=== PATIENT | male | born 1945 | race Caucasian/White ===

== ENCOUNTER → 2017-11-06 | Outpatient (CLI) | payer OTHER ==
[~2017-11-06] MED LIST: ASPIR 8181 M1 PO; CITRUCEL CAPLET1 TA1 PO; COREG6.25 MG PO; COUMADIN 10MG T10 M1 PO; COUMADIN 4 MG TA4 M1 PO; COUMADIN 5 MG TA5 M1 PO; COUMADIN PO; COUMADIN7.5 MG PO; COZAAR 50 MG TA50 M2 PO; DIFLUCAN200 MG PO; DOXYCYCLINE 10100 MG PO; ELIQUIS5 MG PO; ENALAPRIL MALEA20 MG PO; FOLIC ACID1 MG PO; GLUCOPHAGE1000 MG PO; GLUCOTROL5 MG PO; GLYBURIDE 5 MG T5 M1 PO; HUMALOG100 UNIT/1 SUBQ; I-CAPS AREDS S1 EACH PO; JARDIANCE10 MG PO; KEFLEX500 MG PO; LASIX 20 MG TAB20 MG PO; LEVAQUIN 250 M250 MG PO; LIPITOR10 MG PO; LOPRESSOR100 M1 PO; LOVASTAT20 PO; LUMIGAN2.5 M1 OPHTHALMIC; METFORMIN HCL500 MG PO; METFORMIN PO; NORVASC5 MG PO; OMEGA-31000 M1 PO; PENTOXIFYLLINE25 GM PO; PENTOXIFYLLINE400 MG PO; PLAVIX 75 MG TA75 M1 PO; SYNTHROID100 MCG PO; TRENTAL PO; TUMS PO; UNICOMPLEX M TA1 TA1 PO; VASOTEC10 MG PO; VITAMIN B-12500 MCG PO; VITAMIN B-6100 MG PO; XALATAN2.5 ML OPHTHALMIC
== END ==
LOC: M.ULTRA 12:25
DX: I74.2 Embolism and thrombosis of arteries of the upper extremities (principal); I65.29 Occlusion and stenosis of unspecified carotid artery; E11.9 Type 2 diabetes mellitus without complications; Z79.4 Long term (current) use of insulin

== ENCOUNTER 2017-11-10 15:37 | Inpatient (IN) | payer OTHER ==
[~2017-11-10] VITALS: Ht 177.8 cm; Wt 98.0 kg
[~2017-11-10 15:37] MED LIST changes: -FOLIC ACID1 MG PO; -JARDIANCE10 MG PO; -METFORMIN HCL500 MG PO; -SYNTHROID100 MCG PO; -UNICOMPLEX M TA1 TA1 PO; -VITAMIN B-12500 MCG PO; -VITAMIN B-6100 MG PO
[2017-11-10 15:41] VITALS: BP 180/89
[2017-11-10 16:14] LABS: ABSOLUTE BASOPHILS 0.1 thou/uL (0.0-0.2); ABSOLUTE EOSINOPHILS 0.4 thou/uL (0.0-0.7); ABSOLUTE LYMPHOCYTES 2.1 thou/uL (0.8-5.3); ABSOLUTE MONOCYTES 0.9 thou/uL (0.0-1.2); ABSOLUTE NEUTROPHILS 4.7 thou/uL (1.6-8.1); BASOPHILS 1.4 %; EOSINOPHILS 4.6 %; HEMATOCRIT 40.7 % (42.0-52.0); HEMOGLOBIN 13.7 gm/dL (14.0-18.0); LYMPHOCYTES 25.6 %; MCH 30.4 pg (26.0-34.0); MCHC 33.6 g/dL (28.0-37.0); MCV 90.5 fL (80.0-100.0); MONOCYTES 10.8 %; MPV 8.5 fl. (7.2-11.1); NUCLEATED RBCS 0 /100WBC; PLATELET COUNT* 228 thou/uL (150-400); POLYS 57.6 %; RBC 4.49 mil/uL (4.50-6.00); RDW-CV 14.5 % (10.5-14.5); WBC 8.2 thou/uL (4.0-11.0)
[2017-11-10 16:23] LABS: INR 1.2; PROTIME 11.3 Seconds (9.20-11.50)
[2017-11-10] MEDS ORDERED: VITAMIN B-12500 MCG PO (16:23)
[2017-11-10 16:24] LABS: ANION GAP 13 mmol/L (7-16); BUN 19 mg/dL (7-18); CALCIUM 9.9 mg/dL (8.5-10.1); CHLORIDE 102 mmol/L (98-107); CO2 24 mmol/L (21-32); CREATININE 1.5 mg/dL (0.6-1.3); GLUCOSE 166 mg/dL (70-99); POTASSIUM 4.1 mmol/L (3.5-5.1); SODIUM 139 mmol/L (136-145)
[2017-11-10] MEDS ORDERED: FOLIC ACID1 MG PO (16:24)
[2017-11-10] MEDS ORDERED: JARDIANCE10 MG PO (16:25)
[2017-11-10] MEDS ORDERED: SYNTHROID100 MCG PO (16:25)
[2017-11-10] MEDS ORDERED: TUMS PO (16:27)
[2017-11-10] MEDS ORDERED: METFORMIN HCL500 MG PO (16:27)
[2017-11-10] MEDS ORDERED: VASOTEC10 MG PO (16:27)
[2017-11-10] MEDS ORDERED: UNICOMPLEX M TA1 TA1 PO (16:27)
[2017-11-10] MEDS ORDERED: VITAMIN B-6100 MG PO (16:28)
[2017-11-10 16:35] LABS: ALBUMIN 3.7 g/dL (3.4-5.0); ALKALINE PHOSPHATASE 107 U/L (46-116); LIPASE 126 U/L (73-393); NT-PRO BRAIN NAT PEPTIDE 914 pg/mL (<300); SGOT 18 U/L (15-37); SGPT 16 U/L (30-65); TOTAL BILIRUBIN 0.5 mg/dL (<0.1-1.0); TOTAL PROTEIN 7.3 g/dL (6.4-8.2); TROPONIN-I LEVEL <0.06 ng/mL (<0.06)
[2017-11-10 17:50] LABS: URINE BILIRUBIN NEGATIVE (Negative); URINE BLOOD NEGATIVE (Negative); URINE CLARITY CLEAR; URINE COLOR YELLOW; URINE GLUCOSE-RANDOM 3+ (Negative); URINE KETONES TRACE (Negative); URINE LEUKOCYTES-REFLEX NEGATIVE (Negative); URINE NITRITE-REFLEX NEGATIVE (Negative); URINE PROTEIN NEGATIVE (Negative); URINE SPECIFIC GRAVITY <= 1.005 (1.005-1.030); URINE UROBILINOGEN 0.2 E.U./dl (0.2-1.0)
--- NOTE | 2017-11-10 19:57 | NUR ---
requested blood sugar check, 126 at this time, requesting food.
[2017-11-10 20:15] VITALS: BP 164/84
[2017-11-10 20:40] VITALS: BP 155/57
[2017-11-11] VITALS (13 sets, daily range): BP systolic 100–189; BP diastolic 40–93
[2017-11-11 01:27] LABS: HEMATOCRIT 40.3 % (42.0-52.0); HEMOGLOBIN 13.4 gm/dL (14.0-18.0); MCH 30.2 pg (26.0-34.0); MCHC 33.1 g/dL (28.0-37.0); MCV 91.3 fL (80.0-100.0); MPV 8.2 fl. (7.2-11.1); RBC 4.41 mil/uL (4.50-6.00); RDW-CV 14.6 % (10.5-14.5); WBC 6.7 thou/uL (4.0-11.0)
[2017-11-11 01:44] LABS: CALCIUM 9.4 mg/dL (8.5-10.1); CREATININE 1.4 mg/dL (0.6-1.3); MAGNESIUM 2.1 mg/dL (1.8-2.4); POTASSIUM 4.2 mmol/L (3.5-5.1)
--- NOTE | 2017-11-11 07:55 | NUR ---
PATIENT PARTIALLY PROGRESSING TOWARDS GOALS: NO MORE SYNCOPAL EPISODES THIS SHIFT. PATIENT DENIES DIZZINESS AND DYSPNEA. PATIENT HAS REMAINED ON 2L O2 WITH SATS >92%. PATIENT'S BLOOD PRESSURE, HOWEVER, WAS ELEVATED THIS AM. COREG ADMINISTERED EARLY PER DR'S ORDERS. NO IMPROVEMENT NOTED IN BP. ORDERS RECEIVED FOR PRN HYDRALAZINE. HOURLY ROUNDING OBSERVED. CALL LIGHT WITHIN REACH
--- NOTE | 2017-11-11 09:00 | NUR ---
ASSUMED PT. CARE AND RECEIVED RPEORT AT 0730. PT A/OX4, VSS, MONITOR ON TRACING VPACED. PT. ON 2L NC @ 100%. FULL ASSESSMENT COMPLETED, REFER TO CHARTING. PT. HAS NO COMPLAINTS THIS MORNING OF SOB, HOWEVER HE DOES C/O DIZZINESS WHEN SITTING/STANDING FOR ORTHOSTATICS. ORTHOSTATICS- LAYING 183/46, SITTING 156/61, STANDING 169/78. PT. AT BEDSIDE. 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 CALL LIGHT IN REACH, WILL CONTINUE WITH PLAN OF CARE.
--- NOTE | 2017-11-11 11:46 | EKG ---
[place] [address] ELECTROCARDIOGRAM REPORT Name: ASHISH FARIA Room: [address] ADM IN .R.#: [id number] Admission: 11/10/17 Attend Phys: Titus Fagan Discharge: Date of : 45 Report #: [id number] THIS REPORT FOR: //name// [facility] ED Test Date: 2017-11-10 Test Time: 15:39:57 Pat Name: ASHISH FARIA Department: Room: [facility] Gender: M Branch Administrator: UNK : 1945 Requested By: Oswaldo Penn Order Number: [id number] MD: Saúl Ortiz Measurements Intervals [place] Rate: 85 P: 99 VT: 164 QRS: 27 QRSD: 94 T: 235 QT: 376 QTc: 447 Interpretive Statements Ventricular-paced complexes atrial fibrillation Nonspecific repol abnormality, diffuse leads Compared to ECG 09/18/2017 14:04:58 no change Electronically Signed On 11-11-2017 11:46:19 ROCK DRILL OPERATOR by Saúl Ortiz [email or web address] <ELECTRONICALLY SIGNED> By: Saúl Ortiz MD, [facility] 11/11/17 1146 1539 1539 Saúl Ortiz MD, [facility] /EPI
--- NOTE | 2017-11-11 16:26 | NUR ---
CM ASSESSMENT: Pt known to this CM from previous hospital stay. A&O. Resides at home with his . Was at cardiac rehab when had syncopal episode. Pt uses a cane for mobility. Hx of HH. Hx of skilled at [facility]. Hx of inpt rehab. Pt's goal is to return home once medically stable. Supportive family that is involved in POC. Following.
[2017-11-12] VITALS (12 sets, daily range): BP systolic 109–154; BP diastolic 26–61
--- NOTE | 2017-11-12 04:25 | NUR ---
ALERT AND ORIENTED X 4, SLEEPING ON AND OFF THROUGH NIGHT. BED IN LOW POSITION, CALL LIGHT IN REACH. NO SIGN OF DISTRESS NO COMPLAINTS OF PAIN, CONT. V PACE AT TIMES. HR IN 60S. CONT PLAN OF CARE.
--- NOTE | 2017-11-12 13:43 | NUR ---
PATIENT IS ALERT AND ORIENTED TODAY. VITAL SIGNS ARE STABLE ON 2 LITERS OF OXYGEN THROUGH NASAL CANNULA. NO COMPLAINTS OF ANY PAIN TODAY. FAMILY IS AT BEDSIDE. PATIENT USES URINAL AT BEDSIDE. WAITING ON RESULTS OF ECHO TO SEE IF PATIENT MAY BE DISCHARGED TODAY. CALL LIGHT IS IN REACH. WILL CONTINUE TO MONITOR.
--- NOTE | 2017-11-12 15:24 | NUR ---
CM SPOKE TO THE PATIENT AND HIS TO DISCUSS DISCHARGE PLANNING NEEDS AND CHOICE OF HH. PATIENT CHOSE [facility]. CM SPOKE TO DIONNE AT [facility] TO INFORM OF THE REFERRAL FOR HH AND FAXED PATIENTS CLINICAL INFO. PATIENT TO DISCHARGE TODAY PENDING ECHO RESULTS. CM WILL REMAIN AVAILABLE TO ASSIST AND FOLLOW NEEDED
--- NOTE | 2017-11-12 16:32 | NUR ---
DURING 1600 ASSESSMENT PATIENT REPORTED FEELING ODD. PATIENT WAS PALE AND DIAPHORETIC. BLOOD PRESSURE NOTED TO BE 90/18. PATIENT PLACED IN REVERSE TRENDELENBERG BUT WAS UNABLE TO TOLERATE IT. PATIENT'S BREATHING BECAME MORE LABORED. PATIENT REPORTED NO DIFFICULTY BREATHING. OXYGEN SATURATION WAS 94% ON 4 LITERS NASAL CANNULA. PATIENT DROWSY BUT ARROUSABLE. RN CONTACTED DR. ARMSTRONG AFTER SEVERAL TIMES OF ASSESSING BLOOD PRESSURE. IV FLUID BOLUS STARTED, LABS AND OTHER DIAGNOSTIC TESTS ORDERED. PATIENT TRANSFERRED TO ICU.
--- NOTE | 2017-11-12 16:41 | 2DMMODE ---
[facility] [address] [place] [address] 2 D/M-MODE ECHOCARDIOGRAM Name: GIANAASHISH Marissa Room: [address] IN [facility]#: [id number] Admission: 11/10/17 Attend Phys: Parker Yoon Discharge: Date of : 45 Date of Service: 11/12/17 1641 Report #: [id number] THIS REPORT FOR: //name// APPROVED REPORT Study performed: 11/12/2017 11:15:11 EXAM: Limited 2D Echocardiogram Patient Location: In-Patient Room #: 215 Status: routine BSA: 2.16 HR: 69 bpm BP: 141/55 mmHg Rhythm: Atrial Fibrillation Other Information Study Quality: Fair Indications Atrial Fibrillation Syncope Left Ventricle The left ventricle is normal size. Moderate concentric left ventricular hypertrophy. The left ventricular systolic function is normal. The left ventricular ejection fraction is within the normal range. LVEF is 50-55%. This study is not technically sufficient to allow evaluation of the LV diastolic function due to atrial fibrillation. Right Ventricle The right ventricle is normal size. The right ventricular systolic function is normal. Pacemaker lead is present in the right ventricle. Atria Left atrium is mildly dilated. The right atrium size is normal. Aortic Valve The aortic valve is normal in structure. No aortic regurgitation is present. There is no aortic valvular stenosis. Mitral Valve The mitral valve is normal in structure. There is no mitral [place] [address] 2 D/M-MODE ECHOCARDIOGRAM Name: ASHISH FARIA Room: [address] IN .R.#: [id number] Admission: 11/10/17 Attend Phys: Parker Yoon Discharge: Date of : 45 Date of Service: 11/12/171640 Report #: [id number] Tricuspid Valve The tricuspid valve is normal in structure. Trace tricuspid regurgitation. Unable to assess PA pressure. Pulmonic Valve The pulmonary valve is normal in structure. There is no pulmonic valvular regurgitation. Great Vessels The aortic root is normal in size. IVC is not well visualized. Pericardium There is no pericardial effusion. <Conclusion> The left ventricular systolic function is normal. The left ventricular ejection fraction is within the normal range. Moderate concentric left ventricular hypertrophy. Left atrium is mildly dilated. <ELECTRONICALLY SIGNED> By: Saúl Ortiz MD, FACC 11/12/171640 40 40 Saúl Ortiz MD, FACC /INF
--- NOTE | 2017-11-12 16:45 | NUR ---
PATIENT TRANSFERED TO ICU ROOM 1, REPORT TAKEN FROM JOELLE SUNSHINE. PATIENT PRESSURES ARE STABLE ONCE IN ICU. SPOKE WITH FAMILY, PATIENT IS A DNR AT THIS TIME, DR ARMSTRONG NOTIFIED. NO PAIN OR NAUSEA AT THIS TIME. JUST FEELS FUNNY HE SAYS. FLUID BOLUS RUNNING AT THIS TIME, WILL CONTINUE TO RUN NORMAL SALINE AND MONITOR PATIENT.
[2017-11-12 17:10] LABS: ABSOLUTE BASOPHILS 0.1 thou/uL (0.0-0.2); ABSOLUTE EOSINOPHILS 0.3 thou/uL (0.0-0.7); ABSOLUTE LYMPHOCYTES 1.9 thou/uL (0.8-5.3); ABSOLUTE MONOCYTES 0.8 thou/uL (0.0-1.2); ABSOLUTE NEUTROPHILS 6.3 thou/uL (1.6-8.1); BASOPHILS 0.8 %; EOSINOPHILS 3.6 %; HEMATOCRIT 38.8 % (42.0-52.0); HEMOGLOBIN 12.9 gm/dL (14.0-18.0); LYMPHOCYTES 19.9 %; MCH 30.3 pg (26.0-34.0); MCHC 33.3 g/dL (28.0-37.0); MCV 91.1 fL (80.0-100.0); MONOCYTES 8.9 %; MPV 7.9 fl. (7.2-11.1); NUCLEATED RBCS 0 /100WBC; PLATELET COUNT* 216 thou/uL (150-400); POLYS 66.8 %; RBC 4.26 mil/uL (4.50-6.00); RDW-CV 14.5 % (10.5-14.5); WBC 9.5 thou/uL (4.0-11.0)
[2017-11-12 17:17] LABS: CALCIUM 9.7 mg/dL (8.5-10.1); CREATININE 1.6 mg/dL (0.6-1.3); POTASSIUM 4.1 mmol/L (3.5-5.1)
[2017-11-12 18:38] LABS: BE -5.4 mmol/L (-2 to +3); HCO3 17.2 mmol/L (22.0-26.0); PCO2 26.1 mmHg (35.0-45.0); pH 7.438 (7.340-7.450)
[2017-11-12 18:39] LABS: PO2 146.7 mmHg (75.0-100.0)
[2017-11-13] VITALS (10 sets, daily range): BP systolic 108–167; BP diastolic 36–60
--- NOTE | 2017-11-13 05:30 | NUR ---
PT. PROGRESSING WELL TOWARDS GOALS. DIASTOLIC BP HAS BEEN SOFT AT TIMES BUT STABILIZED THROUGHOUT SHIFT. ALERT AND ORIENTED. URINAL TO VOID, ADEQUATE URINE OUTPUT. V PACED MOSTLY, INFREQUENT A PACED SPIKES. IVF REMAIN INFUSING. PT. POSSIBLE DC HOME TODAY.
--- NOTE | 2017-11-13 10:43 | NUR ---
PT TO TRANSFER BACK TO [facility] TODAY, POSSIBLE DISCHARGE TOMORROW. PT PLANS ON RETURNING HOME WITH HIS .
[2017-11-13 11:54] LABS: ABSOLUTE EOSINOPHILS 0.4 thou/uL (0.0-0.7); ABSOLUTE LYMPHOCYTES 1.9 thou/uL (0.8-5.3); ABSOLUTE MONOCYTES 0.5 thou/uL (0.0-1.2); ABSOLUTE NEUTROPHILS 4.5 thou/uL (1.6-8.1); BASOPHILS 0.7 %; EOSINOPHILS 4.8 %; HEMATOCRIT 42.8 % (42.0-52.0); LYMPHOCYTES 26.5 %; MCH 30.1 pg (26.0-34.0); MCHC 32.8 g/dL (28.0-37.0); MCV 91.7 fL (80.0-100.0); MONOCYTES 6.5 %; MPV 8.4 fl. (7.2-11.1); NUCLEATED RBCS 0 /100WBC; PLATELET COUNT* 215 thou/uL (150-400); POLYS 61.5 %; RBC 4.66 mil/uL (4.50-6.00); RDW-CV 14.5 % (10.5-14.5); WBC 7.3 thou/uL (4.0-11.0)
[2017-11-13 11:59] LABS: CREATININE 1.2 mg/dL (0.6-1.3); POTASSIUM 3.8 mmol/L (3.5-5.1)
--- NOTE | 2017-11-13 18:10 | NUR ---
PT DISCHARGED TO HOME WITH HOME HEALTH CARE SET UP WITH CASE MANAGEMENT. PT WORKED WITH PT TODAY AND WALKED THE HALLS. VSS. ASSESSMENT CHARTED. DISCHARGE PAPERWORK WENT OVER WITH PATIENT AND HIS , WITHOUT ANY QUESTIONS.
--- NOTE | 2017-11-14 09:03 | NUR ---
PT. DISCHARGED HOME WITH HOME HEALTH PRIOR TO O.T. EVAL. HE WAS ON HOLD ON 11/12 DUE TO ICU TRANSFER WITH LOW B/P 90/18.
== END 2017-11-13 18:05 | disposition home health service (06) | DRG 682 ==
LOC: M.ERS 15:37 → M.2W 17:07 → M.TBA-ER 17:07 → M.2W 20:58 → M.ICU 11-12 16:32
PROVIDERS: Emergency Medicine; ADMIT Internal Medicine
DX: N17.0 Acute kidney failure with tubular necrosis (principal); G93.40 Encephalopathy, unspecified; I50.22 Chronic systolic (congestive) heart failure; I13.0 Hypertensive heart and chronic kidney disease with heart failure and stage 1 through stage 4 chronic kidney disease, or unspecified chronic kidney disease; I95.1 Orthostatic hypotension; N18.3 Chronic kidney disease, stage 3 (moderate); I16.0 Hypertensive urgency; E11.65 Type 2 diabetes mellitus with hyperglycemia; I25.10 Atherosclerotic heart disease of native coronary artery without angina pectoris; E86.0 Dehydration; I48.2 Chronic atrial fibrillation; E78.5 Hyperlipidemia, unspecified; Z95.1 Presence of aortocoronary bypass graft; Z79.4 Long term (current) use of insulin; Z79.899 Other long term (current) drug therapy; Z79.82 Long term (current) use of aspirin

== ENCOUNTER 2017-12-03 11:15 | Emergency (ER) | payer OTHER ==
[~2017-12-03] VITALS: Ht 177.8 cm; Wt 94.8 kg
[~2017-12-03 11:15] MED LIST changes: +FOLIC ACID1 MG PO; +JARDIANCE10 MG PO; +METFORMIN HCL500 MG PO; +SYNTHROID100 MCG PO; +UNICOMPLEX M TA1 TA1 PO; +VITAMIN B-12500 MCG PO; +VITAMIN B-6100 MG PO
[2017-12-03 12:10] LABS: ABSOLUTE BASOPHILS 0.1 thou/uL (0.0-0.2); ABSOLUTE EOSINOPHILS 0.2 thou/uL (0.0-0.7); ABSOLUTE LYMPHOCYTES 1.8 thou/uL (0.8-5.3); ABSOLUTE MONOCYTES 0.6 thou/uL (0.0-1.2); ABSOLUTE NEUTROPHILS 3.9 thou/uL (1.6-8.1); BASOPHILS 0.9 %; EOSINOPHILS 2.9 %; HEMATOCRIT 42.9 % (42.0-52.0); HEMOGLOBIN 14.2 gm/dL (14.0-18.0); LYMPHOCYTES 27.1 %; MCH 29.7 pg (26.0-34.0); MCHC 33.1 g/dL (28.0-37.0); MCV 89.7 fL (80.0-100.0); MONOCYTES 9.2 %; MPV 8.2 fl. (7.2-11.1); NUCLEATED RBCS 0 /100WBC; PLATELET COUNT* 215 thou/uL (150-400); POLYS 59.9 %; RBC 4.78 mil/uL (4.50-6.00); RDW-CV 14.3 % (10.5-14.5); WBC 6.5 thou/uL (4.0-11.0)
[2017-12-03 12:15] LABS: ANION GAP 9 mmol/L (7-16); BUN 17 mg/dL (7-18); CALCIUM 9.8 mg/dL (8.5-10.1); CHLORIDE 105 mmol/L (98-107); CO2 26 mmol/L (21-32); CREATININE 1.2 mg/dL (0.6-1.3); GLUCOSE 112 mg/dL (70-99); POTASSIUM 4.1 mmol/L (3.5-5.1); SODIUM 140 mmol/L (136-145)
[2017-12-03 12:26] LABS: ALBUMIN 3.7 g/dL (3.4-5.0); ALKALINE PHOSPHATASE 98 U/L (46-116); NT-PRO BRAIN NAT PEPTIDE 1075 pg/mL (<300); SGOT 15 U/L (15-37); SGPT 16 U/L (30-65); TOTAL BILIRUBIN 0.7 mg/dL (<0.1-1.0); TOTAL PROTEIN 7.2 g/dL (6.4-8.2); TROPONIN-I LEVEL <0.06 ng/mL (<0.06)
[2017-12-03 12:31] LABS: APTT 29.7 Seconds (25.0-31.3); INR 1.2; PROTIME 11.5 Seconds (9.20-11.50)
[2017-12-03 12:43] LABS: URINE BILIRUBIN NEGATIVE (Negative); URINE BLOOD NEGATIVE (Negative); URINE CLARITY CLEAR; URINE COLOR YELLOW; URINE GLUCOSE-RANDOM 3+ (Negative); URINE KETONES NEGATIVE (Negative); URINE LEUKOCYTES-REFLEX NEGATIVE (Negative); URINE NITRITE-REFLEX NEGATIVE (Negative); URINE PROTEIN NEGATIVE (Negative); URINE SPECIFIC GRAVITY <= 1.005 (1.005-1.030); URINE UROBILINOGEN 0.2 E.U./dl (0.2-1.0)
[2017-12-03 14:03] VITALS: BP 204/80
--- NOTE | 2017-12-04 12:44 | EKG ---
[place] [address] ELECTROCARDIOGRAM REPORT Name: ASHISH FARIA Room: [facility]#: [id number] Admission: 12/03/17 Attend Phys: Discharge: 12/03/17 Date of : 45 Report #: [id number] THIS REPORT FOR: //name// [facility] ED Test Date: 2017-12-03 Test Time: 11:22:44 Pat Name: ASHISH FARIA Department: Room: Gender: M Python Web Developer: Thu MCMILLAN : 1945 Requested By: Dave Bain Order Number: [id number] MD: Bautista Wright Measurements Intervals [place] Rate: 74 P: [place]: QRS: 5 QRSD: 88 T: 243 QT: 369 QTc: 410 Interpretive Statements Afib/flut and V-paced complexes No further rhythm analysis attempted due to paced rhythm Nonspecific repol abnormality, diffuse leads Compared to ECG 11/10/2017 15:39:57 No significant changes Electronically Signed On 12-04-2017 12:44:01 ANCHORMAN by Bautista Wright [email or web address] <ELECTRONICALLY SIGNED> By: Bautista Wright MD, FACC 12/04/17 1244 1122 1122 Bautista Wright MD, FAC /EPI
== END 2017-12-03 14:03 | disposition home or self-care (01) ==
LOC: M.ERS 11:15
PROVIDERS: Nurse Practitioner Family
DX: R42 Dizziness and giddiness (principal); E11.9 Type 2 diabetes mellitus without complications; I48.91 Unspecified atrial fibrillation; Z86.73 Personal history of transient ischemic attack (TIA), and cerebral infarction without residual deficits; Z85.038 Personal history of other malignant neoplasm of large intestine

== ENCOUNTER 2020-05-31 03:07 | Inpatient (IN) | payer OTHER ==
[~2020-05-31] VITALS: Ht 175.3 cm; Wt 89.5 kg
--- NOTE | 2020-05-31 03:34 | NUR ---
STEMI CANCELLED BY DR EVANGELISTA
[2020-05-31 03:53] LABS: ABSOLUTE BASOPHILS 0.1 thou/uL (0.0-0.2); ABSOLUTE EOSINOPHILS 0.1 thou/uL (0.0-0.7); ABSOLUTE MONOCYTES 0.9 thou/uL (0.0-1.2); ABSOLUTE NEUTROPHILS 7.1 thou/uL (1.6-8.1); EOSINOPHILS 0.6 %; HEMATOCRIT 43.9 % (42.0-52.0); HEMOGLOBIN 15.2 gm/dL (14.0-18.0); LYMPHOCYTES 19.3 %; MCH 31.3 pg (26.0-34.0); MCHC 34.7 g/dL (28.0-37.0); MCV 90.2 fL (80.0-100.0); MONOCYTES 9.2 %; NUCLEATED RBCS 0 /100WBC; PLATELET COUNT* 217 thou/uL (150-400); POLYS 69.9 %; RBC 4.86 mil/uL (4.50-6.00); WBC 10.2 thou/uL (4.0-11.0)
[2020-05-31 03:57] LABS: ANION GAP 12 mmol/L (7-16); APTT 27.3 Seconds (25.0-31.3); BUN 22 mg/dL (7-18); CALCIUM 9.9 mg/dL (8.5-10.1); CHLORIDE 103 mmol/L (98-107); CO2 24 mmol/L (21-32); CREATININE 1.6 mg/dL (0.6-1.3); GLUCOSE 221 mg/dL (70-99); INR 1.1; SODIUM 139 mmol/L (136-145)
[2020-05-31 04:01] LABS: ALKALINE PHOSPHATASE 132 U/L (46-116); CHOLESTEROL 97 mg/dL (<200); HDL CHOLESTEROL 28 mg/dL (>40); LDL CHOLESTEROL 64 mg/dL (<100); MAGNESIUM 2.2 mg/dL (1.8-2.4); SGOT 14 U/L (15-37); SGPT 18 U/L (30-65); TC:HDL 3.5 Ratio (Not establshd); TOTAL BILIRUBIN 0.5 mg/dL (<0.1-1.0); TOTAL PROTEIN 7.3 g/dL (6.4-8.2); TRIGLYCERIDE 27 mg/dL (<150); VLDL 5 mg/dL (<40)
[2020-05-31 04:03] LABS: SERUM ASSESSMENT Clear
--- NOTE | 2020-05-31 08:25 | EKG ---
[place] [address] ELECTROCARDIOGRAM REPORT Name: ASHISH FARIA Marissa Room: [address] M.R.#: [id number] Admission: 05/31/20 Attend Phys: Jose Thomas Discharge: Date of : 45 Date of Service: 05/31/20 0324 Report #: [id number] THIS REPORT FOR: //name// [facility] ED Test Date: 2020-05-31 Test Time: 03:24:33 Pat Name: ASHISH FARIA Department: Room: [facility] Gender: M Firebrick Layer: FRANCESCA TEIXEIRAB: 1945 Requested By: Kenzie Doe Order Number: [id number] MD: Saúl Ortiz Measurements Intervals [place] Rate: 68 P: 0 MA: 124 QRS: -17 QRSD: 100 T: 253 QT: 403 QTc: 429 Interpretive Statements Ventricular-paced complexes No further rhythm analysis attempted due to paced rhythm Borderline left axis deviation previous septal infarction Compared to ECG 12/03/2017 11:22:44 no change Electronically Signed On 05-31-2020 8:25:23 CDT by Saúl Ortiz [email or web address] <ELECTRONICALLY SIGNED> By: Saúl Ortiz MD, FAC 05/31/20 0825 0324 0324 Saúl Ortiz MD, FAC /EPI
[2020-05-31 09:25] VITALS: BP 180/76
[2020-05-31] MEDS ORDERED: PENTOXIFYLLINE400 MG PO (10:19)
[2020-05-31] MEDS ORDERED: NORVASC 2.5 MG2.5 M1 PO (10:20)
[2020-05-31] MEDS ORDERED: CARVEDILOL3.125 MG PO (10:21)
[2020-05-31] MEDS ORDERED: LOSARTAN POTASS50 MG PO (10:22)
[2020-05-31] MEDS ORDERED: FISH OIL 1,0001 EAC9 (10:24)
[2020-05-31] MEDS ORDERED: CITRUCEL500 MG PO (10:25)
[2020-05-31] MEDS ORDERED: VYZULTA5 ML OPHTHALMIC (10:27)
[2020-05-31] MEDS ORDERED: LUTEIN 15 MG S1 EACH PO (10:29)
[2020-05-31] MEDS ORDERED: TIMOLOL MALEATE5 M2 LT. EYE (10:29)
[2020-05-31 13:51] VITALS: BP 178/54
--- NOTE | 2020-05-31 14:30 | NUR ---
PT WENT TO STRESS TEST.
[2020-05-31 17:40] VITALS: BP 179/82; BP 184/57
[2020-05-31 20:00] VITALS: BP 148/62
[2020-06-01] VITALS: BP 169/43
[2020-06-01 04:00] VITALS: BP 177/58
--- NOTE | 2020-06-01 05:44 | NUR ---
ASSUMED PT CARE AT APPROX 1900. PT IS AWAKE AND ORIENTED X4, HARD OF HEARING. PT IS TRACING SA, WITH VENTRICULAR PACED RHYTHMS. PT DENIES CHEST PAIN/DISCOMFORT. PT IS ADVISED TO HAVE NOTHING PER OREM AFTER MIDNIGHT FOR STRESS TEST. NO ACUTE CHANGES THROUGHOUT THIS SHIFT. HIGH FALL PRECAUTIONS IN PLACE. CALL LIGHT WITHIN REACH. HORLY ROUNDING DONE.
[2020-06-01 08:45] VITALS: BP 114/91
--- NOTE | 2020-06-01 08:45 | NUR ---
ASSUMED PT. CARE AND RECEDIVED REPORT AT 0730. PT A/OX4, VSS, MONITOR ON TRACING AFIB WITH PVC. PT DENIES CURRENT PAIN/SOB, RA. FULL ASSESSMENT COMPLETED, REFER TO CHARTING. PT. OKAY TO EAT/TAKE MEDS THIS MORNING FOR RESTING PORTION OF STRESS TEST. CALL LIGHT IN REACH, FALL PRECAUTIONS IN PLACE. WILL CONTINUE WITH PLAN OF CARE.
--- NOTE | 2020-06-01 11:27 | NUR ---
Pt is A&O. Resides at home with . Pt independent with ADLs, completes IADLs. Pt uses a cane for mobility. Hx of [facility]. Hx of in rehab. Hx of skilled at [facility]. Pt states that he had a CVA in 2004. Pt states that he is having the 2nd part of the stress test today. Goal is home at or. No needs.
--- NOTE | 2020-06-01 11:30 | NUR ---
SPOKE WITH [facility], THEY WERE ABLE TO COMPLETE STRESS TEST YESTERDAY. LEWIS RUBIO NOTIFIED, WILL FOLLOW UP WITH DR. FROST TO READ.
--- NOTE | 2020-06-01 12:14 | CARDNUC ---
[place] [address] CARDIAC NUCLEAR IMAGING REPORT Name: ASHISH FARIA Room: [address] M.R.#: [id number] Admission: 05/31/20 Attend Phys: Jose Thomas Discharge: Date of : 45 Date of Service: 06/01/20 1214 Report #: [id number] THIS REPORT FOR: cc: Khurram Marrero MD, Bryan C. MD Liston, Michael J. MD [facility] ~ APPROVED REPORT Imaging Protocol: Rest Tc-99m/Stress Tc-99m 1 day Study performed: 05/31/2020 09:50:00 Indication: CHEST PAIN, IRREGULAR HR. Patient Location: In-Patient Stress Tech: Lexy Henry Stress Nurse: Alondra Rutherford RN NM Tech:PAVEL Martin Ht: 5 ft 9 in Wt: 195 lbs BSA: 2.04 m2 BMI: 28.79 Medical History Medical History: CHEST PAIN, IRREGULAR HR, HX AFIB, CKD, CVA 2004, CATHERIZATION,CAD CABG X4, PAST SMOKER, HTN, HLD, DM, PACEMAKER, WEAK/UNSTABLE GAIT/FALL RISK, RUBY, BLIND LEFT EYE. Medications: ATORVASTATIN, CARVEDILOL, AMLODIPINE, ASA 81 MG, COZAAR, NTG, HOME MEDS INCLUDE - ELIQUIS, ENALAPRIL, OMEGA 3'S. Allergies: PENICILLINS Cardiac Risk Factors: Age, DM, HTN, Hyperlipidemia, Past Smoker, Angina, HX CABG, PACEMAKER, HX AFIB. Previous Cardiac Procedures: CATHERIZATION, CABG X4. Pretest Chest Pain Characteristics: No chest pain Exercise History: Sedentary Physical Disabilities: PACEMAKER, CVA, WEAK/UNSTEADY GAIT. Meds Held (24 hrs): CARVEDILOL. Resting Data Rest SPECT myocardial perfusion imaging was performed in supine position 30 minutes following the intravenous injection of 12.0 mCi of Tc-99m Sestamibi. Time of rest injection: 1340 Date: 05/31/2020 The images were gated to evaluate regional wall motion and calculate left ventricular ejection fraction. Administration Route: IV Administration Site: [place] [address] CARDIAC NUCLEAR IMAGING REPORT Name: ASHISH FARIA Marissa [address] [id number] Admission: 05/31/20 Attend Phys: Jose Thomas Discharge: Date of : 45 Date of Service: 06/01/20 1214 Report #: [id number] Pharmacologic Stress Pharmacologic stress test was performed by injecting Regadenoson 0.4 mg IV push over 10-15 seconds immediately followed by the intravenous injection of 26.1 mCi of Tc-99m Sestamibi. Time of stress injection: 1635 Date: 05/31/2020 Administration Route: IV Administration Site: Right AC Gated Stress SPECT was performed 40 minutes after stress injection. The images were gated to evaluate regional wall motion and calculate left ventricular ejection fraction. Stress only was performed in the Supine position. Stress Test Details Stress Test: Pharmacologic stress testing performed using 0.4 mg of regadenoson per 5 mL given IV over 10 seconds. Reason for pharmacologic stress test: PACEMAKER, CVA, WEAK/UNSTEADY GAIT.. HR Max Heart Rate (APMHR): 146 bpm Resting HR: 76 bpm Target HR (85% APMHR): 124 bpm Max HR Achieved: 120 bpm % of APMHR: 82 Recovery HR: 76 bpm BP Resting BP: 203/97 mmHg Max BP: 191/75 mmHg Recovery BP: 180/80 mmHg ECG Resting ECG: Atrial fibrillation with intermittently ventricularly paced rhythm and nonspecific ST segment depression and T wave inversion Stress ECG: Atrial fibrillation with intermittently ventricularly paced rhythm and nonspecific ST segment depression and T wave inversion ST Change: None Recovery ECG: Atrial fibrillation with intermittently ventricularly paced rhythm and nonspecific ST segment depression and T wave inversion Recovery ST Change: None Clinical Reason for Termination: Completed protocol Stress Symptoms: Lightheaded, [place] [address] CARDIAC NUCLEAR IMAGING REPORT Name: FARIAASHISH W Room: [address] [place]#: [id number] Admission: 05/31/20 Attend Phys: Jose Thomas Discharge: Date of : 45 Date of Service: 06/01/20 1214 Report #: [id number] Exercise duration: 00 min 00 sec Exercise capacity: 1.00 METs The patient tolerated Lexiscan infusion without significant cardiac symptoms. Nurse Comments A 74 YEAR OLD MALE PRESENTED FOR THE E.D. WITH A PACEMAKER FOR A SITTING LEXISCAN R/T CHEST PAIN AND IRREGULAR HR. TEST WELL TOLERATED. RECOVERY UNREMARKABLE. PATIENT WAS ESCORTED VIA WHEELCHAIR BY STAFF TO NUCLEAR MEDICINE FOR IMAGING. PATIENT WAS STABLE AND STATED HE FELT GOOD AT THAT TIME. Stress ECG Conclusion The baseline twelve-lead EKG shows atrial fibrillation with diffuse mild ST segment depression and T wave inversion. There was intermittent ventricular pacing noted. EKGs obtained during and post Lexiscan infusion show no significant change from baseline. Study Quality Study: Good Artifact: No artifact Study Data At rest, the left ventricular ejection fraction was 70%.. Post stress, the left ventricular ejection was 52%.. TID = 0.95. Perfusion Perfusion images obtained at rest showed uniform uptake of the radioisotope throughout the myocardium. Post Lexiscan infusion there is a moderate sized moderate intensity defect involving the mid to distal lateral wall. Wall Motion There is a septal wall motion abnormality of uncertain significance. Global LV systolic function is preserved. Nuclear Conclusion ECG Findings: non-diagnostic Clinical Findings: negative for ischemia Nuclear Findings: positive for ischemia Exercise Capacity: not assessed Left Ventricular Function: Preserved Risk Study: high Perfusion study shows a moderate size reversible defect of the lateral wall suggesting ischemia in the circum[place] [address] CARDIAC NUCLEAR IMAGING REPORT Name: ASHISH FARIA Room: [address] M.R.#: [id number] Admission: 05/31/20 Attend Phys: Jose Thomas Discharge: Date of : 45 Date of Service: 06/01/20 1214 Report #: [id number] LV systolic function is preserved with wall motion abnormalities as noted above. This is a high risk study. <Conclusion> The baseline twelve-lead EKG shows atrial fibrillation with diffuse mild ST segment depression and T wave inversion. There was intermittent ventricular pacing noted. EKGs obtained during and post Lexiscan infusion show no significant change from baseline. <ELECTRONICALLY SIGNED> By: Bautista Wright MD, [facility] 06/01/204 13 13 Bautista Wright MD, FACC /INF
[2020-06-01 14:06] VITALS: BP 154/54
[2020-06-01 20:00] VITALS: BP 174/53
[2020-06-02] VITALS (19 sets, daily range): BP systolic 144–224; BP diastolic 44–94
[2020-06-02 05:24] LABS: PROTIME 10.8 Seconds (9.20-11.50)
[2020-06-02 05:29] LABS: ABSOLUTE EOSINOPHILS 0.2 thou/uL (0.0-0.7); ABSOLUTE LYMPHOCYTES 2.4 thou/uL (0.8-5.3); ABSOLUTE MONOCYTES 0.8 thou/uL (0.0-1.2); ABSOLUTE NEUTROPHILS 4.5 thou/uL (1.6-8.1); BASOPHILS 0.5 %; EOSINOPHILS 2.2 %; HEMOGLOBIN 14.3 gm/dL (14.0-18.0); LYMPHOCYTES 30.5 %; MCH 31.1 pg (26.0-34.0); MCHC 34.1 g/dL (28.0-37.0); MCV 91.2 fL (80.0-100.0); MONOCYTES 10.2 %; MPV 8.4 fl. (7.2-11.1); NUCLEATED RBCS 0 /100WBC; PLATELET COUNT* 201 thou/uL (150-400); POLYS 56.6 %; RBC 4.61 mil/uL (4.50-6.00); RDW-CV 14.2 % (10.5-14.5); WBC 7.9 thou/uL (4.0-11.0)
[2020-06-02 05:45] LABS: ALBUMIN 3.4 g/dL (3.4-5.0); CALCIUM 8.6 mg/dL (8.5-10.1); CREATININE 1.2 mg/dL (0.6-1.3); POTASSIUM 3.8 mmol/L (3.5-5.1); TOTAL BILIRUBIN 0.6 mg/dL (<0.1-1.0); TOTAL PROTEIN 6.5 g/dL (6.4-8.2)
--- NOTE | 2020-06-02 06:59 | NUR ---
ASSUMED PT CARE AT APPROX 1900. PT IS AWAKE AND ORIENTED X4, HARD OF HEARING. PT IS TRACING SA, WITH VENTRICULAR PACED RHYTHMS. PT DENIES CHEST PAIN/DISCOMFORT. PT IS ADVISED TO HAVE NOTHING PER OREM AFTER MIDNIGHT FOR CARDIAC CATH IN AM. . NO ACUTE CHANGES THROUGHOUT THIS SHIFT. HIGH FALL PRECAUTIONS IN PLACE. CALL LIGHT WITHIN REACH. HORLY ROUNDING DONE.
--- NOTE | 2020-06-02 08:49 | NUR ---
Pt to have cath today. Continues to plan to return home at dc, no needs anticipated.
--- NOTE | 2020-06-02 16:17 | EKG ---
[place] [address] ELECTROCARDIOGRAM REPORT Name: FARIAASHISH W Room: [address] ADM IN M.R.#: [id number] Admission: 06/01/20 Attend Phys: Jose Thomas Discharge: Date of : 45 Date of Service: 06/02/20 1525 Report #: [id number] THIS REPORT FOR: //name// [facility] Test Date: 2020-06-02 Test Time: 15:25:22 Pat Name: ASHISH FARIA Department: Room: [address] Gender: M Wood Cabinetmaker: : 1945 Requested By: Leon Bryan Order Number: [id number] Reading MD: Bautista Wright Measurements Intervals [place] Rate: 62 P: [place]: QRS: 14 QRSD: 101 T: 264 QT: 443 QTc: 450 Interpretive Statements Afib/flut and V-paced complexes No further rhythm analysis attempted due to paced rhythm Nonspecific repol abnormality, diffuse leads Anteroseptal infarct, recent compared to ECG 05/31/2020 03:24:33 Early repolarization now present ST (T wave) deviation now present Electronically Signed On 06-02-2020 16:16:59 CDT by Bautista Wright [email or web address] <ELECTRONICALLY SIGNED> By: Bautista Wright MD, FAC 06/02/20 1616 1525 1525 Bautista Wright MD, [facility] /EPI
--- NOTE | 2020-06-02 18:00 | NUR ---
VS CHARTED, A&OX4, ROOM AIR, UP WITH ONE, CATH PERFORMED- RIGHT GROIN SITE DRESSING CLEAN DRY INTACT WITH NO HEMATOMA, PT UP POST CATH AT 2029. HOURLY ROUNDING PERFORMED, POSSESSIONS AND CALL LIGHT WITHIN REACH.
[2020-06-03] VITALS (7 sets, daily range): BP systolic 153–214; BP diastolic 43–94
[2020-06-03 04:48] LABS: HEMATOCRIT 41.7 % (42.0-52.0); HEMOGLOBIN 14.5 gm/dL (14.0-18.0); MCH 31.4 pg (26.0-34.0); MCHC 34.9 g/dL (28.0-37.0); MCV 90.1 fL (80.0-100.0); MPV 7.9 fl. (7.2-11.1); RBC 4.62 mil/uL (4.50-6.00); RDW-CV 14.3 % (10.5-14.5); WBC 8.6 thou/uL (4.0-11.0)
[2020-06-03 05:17] LABS: ALBUMIN 3.1 g/dL (3.4-5.0); CALCIUM 8.2 mg/dL (8.5-10.1); CREATININE 1.1 mg/dL (0.6-1.3); POTASSIUM 3.6 mmol/L (3.5-5.1); TOTAL BILIRUBIN 0.9 mg/dL (<0.1-1.0); TOTAL PROTEIN 6.2 g/dL (6.4-8.2); TROPONIN-I LEVEL 0.17 ng/mL (<0.06)
--- NOTE | 2020-06-03 06:02 | NUR ---
PT ALERT AND ORIENTED X4. DENIES PAIN AND SOB. CATH SITE C/D/I. CALL LIGHT WITHIN REACH AND BED IN LOW POSITION. HOURLY ROUNDING DONE FOR PT SAFETY.
[2020-06-03] MEDS ORDERED: COREG6.25 MG PO (08:10)
[2020-06-03] MEDS ORDERED: NITROGLYCERIN0.4 MG SUBLING (08:10)
[2020-06-03] MEDS ORDERED: BRILINTA90 MG PO (08:10)
[2020-06-03] MEDS ORDERED: LOSARTAN POTASS50 MG PO (13:37)
[2020-06-03] MEDS ORDERED: ELIQUIS5 MG PO (16:02)
--- NOTE | 2020-06-03 20:03 | NUR ---
VS CHARTED, HYPERTENSIVE, A&OX4, ROOM AIR, UP WITH ONE TO BATHROOM. PATIENT REPORTED A SEVERE HEADACHE IN THE AFTERNOON. PATIENT STATED FELT LIKE THE HEADACHE HE EXPERIENCED WHEN HAVING STROKE IN 2004. NIH OF 1 DUE TO SLIGHT LEFT SIDED FACIAL DROOP. CODE STROKE ACTIVATED, MEDS GIVEN PER PHYSICIAN. FACIAL DROOP RESOLVED. HYPERTENSION CONTROLLED. HOURLY ROUNDING PERFORMED, POSSESSIONS AND CALL LIGHT WITHIN REACH
[2020-06-04 00:29] VITALS: BP 125/41
[2020-06-04 04:49] VITALS: BP 116/50
[2020-06-04 04:54] LABS: ALBUMIN 3.2 g/dL (3.4-5.0); CALCIUM 8.9 mg/dL (8.5-10.1); CREATININE 1.6 mg/dL (0.6-1.3); POTASSIUM 4.4 mmol/L (3.5-5.1); TOTAL BILIRUBIN 0.9 mg/dL (<0.1-1.0); TOTAL PROTEIN 6.4 g/dL (6.4-8.2)
--- NOTE | 2020-06-04 05:25 | NUR ---
PT ALERT AND ORIENTED X4. DENIES PAIN AND SOB. NIH DONE AND CHARTED. SLEPT THROUGHOUT THE NIGHT. CALL LIGHT WITHIN REACH AND BED IN LOW POSITION. HOURLY ROUNDING DONE FOR PT SAFETY.
[2020-06-04 08:00] VITALS: BP 153/55
--- NOTE | 2020-06-04 10:29 | CARD ---
[address] [address] CARDIAC CATH REPORT Name: ASHISH FARIA Room: [address] IN [facility]#: [id number] Admission: 06/01/20 Attend Phys: Jose Eller, Discharge: Date of : 45 Report #: [id number] THIS REPORT FOR: //name// cc: Khurram Marrero MD, Bryan C. MD ~ APPROVED REPORT Study performed: 06/02/2020 12:57:23 Patient Details Patient Status: In-Patient Room #: The patient is a 74 year-old male Event Personnel Leon Bryan Senior Game Advisor, Carl Yousif RN RN, Julius Ayala Scrlaura, Tierra Quinones RTR Monitor Procedures Performed Art Access - R femoral artery Elijah Access - R femoral vein Left Heart Cath Coronaries, Bypass Grafts ROLO Revasc Graft Single OM Hemostasis w/ Angioseal Hemostasis with Manual pressure Indication Unstable angina , Positive stress test Risk Factors Obesity, Hypercholesterolemia, Hypertension, Diabetes Previous Procedures/Diagnoses Previous CABGPrevious CVA Admission/Lab Medications/Medications given during procedure Lidocaine Subcut 14 ml, Oxygen Nasal cannula 2 l per min, 0.9% Sodium Chloride IV 75 ml per hr, Fentanyl IV 25 mcg, Midazolam (Versed) IV 1 mg, Angiomax IV 13.5 ml, Angiomax Drip IV 30.95 ml per hr, Angiomax IV 4 ml, Nitroglycerin IC 400 mcg, Ticagrelor PO 180 mg, Aspirin PO 162 mg Procedure Narrative The patient was brought urgently to the Cardiac Catheterization Laboratory and was prepped and draped in a sterile manner. The right femoral was infiltrated with 2% Lidocaine subcutaneous anesthesia. A [place] 6 FR sheath was inserted into [place] [address] CARDIAC CATH REPORT Name: FARIAASHISH Marissa Room: [address] IN [facility].#: [id number] Admission: 06/01/20 Attend Phys: Jose Eller, Discharge: Date of : 45 Report #: [id number] Coronary angiography was performed using coronary diagnostic catheters. The right coronary system was accessed and visualized with a Diagnostic 6 Fr JR 4 catheter. The left coronary system was accessed and visualized with a Diagnostic 6 Fr JL 4 catheter. The left ventricle was accessed and visualized with a Diagnostic 6 Fr Pigtail catheter. Left ventricular/Aortic Valve gradient assessed via catheter pullback. Left ventriculogram was performed in AGUIRRE projection. Pre-demployment femoral angiogram was performed . Closure device was deployed with a Fr Angioseal 6 Fr. The patient tolerated the procedure well and there were no complications associated with the procedure. There was no hematoma. A [place] 5 Fr sheath was inserted into the right femoral vein for IV access.The SVG to the Circ and OM was accessed and visualized with a diagnostic 6 Fr JR 4 catheter.The SVG to the RCA was accessed and visualized with a diagnostic 6 Fr JR 4 catheter.The DANIEL to the LAD was accessed and visualized with a diagnostic 6 Fr IM catheter. Hemostasis was obtained with manual pressure following the venous sheath removal with out any complications. Intraoperative Conscious Sedation Sedation start time: 13:50 Case end Time: 14:37 Fentanyl 25 mcg Versed 1 mg Fluoro Time: 15.2 minutes Dose: DAP [id number] cGycm2 2126 mGy Contrast Type and Amount: Visipaque 360 ml [place] Artery Percent Stenosis 1. Widely patent DANEIL graft to the LAD with 40% distal LAD narrowing 2. Widely patent saphenous vein graft to the distal right coronary artery 3. Widely patent saphenous vein graft to a prominent marginal branch of the circumflex with 90% stenosis of the circumflex just beyond the distal anastomotic site Diagnostic Cath Left Main 50% distal narrowing LAD 90% diffuse proximalmid LAD stenosis with reciprocal flow distally reflecting a patent DANIEL graft Circumflex Tandem 90 percent proximal and mid circumflex stenoses with KRAIG II flow to the small posterior division OM1 Total occlusion of [place] [address] CARDIAC CATH REPORT Name: ASHISH FARIA Room: [address] [place] ..#: [id number] Admission: 06/01/20 Attend Phys: Jose Eller, Discharge: Date of : 45 Report #: [id number] Right Coronary Diffuse 90% proximal and mid vessel narrowing with 100% distal occlusion Left Ventriculography The left ventricle is normal in size with contractility. The left ventricular ejection fraction is estimated to be 50%. Left ventricular wall motion abnormalities are present. There is no mitral insufficiency. There is mild mid anterior hypokinesis Hemodynamics The aortic pressure is 198/58 mmHg with a mean of 111 mmHg. The left ventricular pressure is 195/8 mmHg with a mean of mmHg. The left ventricular end diastolic pressure is 14 mmHg. PCI Technique Lesion Anticoagulation was achieved with Angiomax Drip. Patient was preloaded with Angiomax IV 13.5 ml. Percutaneous coronary intervention was performed on the Prominent marginal branch of the circumflex via a saphenous vein graft. The lesion stenosis prior to intervention was 90% with KRAIG 3 flow. A 6F LCB 100CM Guide Catheter was used to engage the ostium. A IG: BMW 190cm Interventional Guidewire was used to cross the lesion. BALLOON DILATION A Balloon catheter Euphora SC 2.0x10mm was inserted and inflated up to 12.00atm for 9seconds. Additional Inflation: 14.00atm for 8seconds. STENT DEPLOYMENT A drug-eluting stent [place] RX Stent 2.0X12mm was inserted and inflated up to 8.00atm for 8seconds. Additional Inflation: 11.00atm for 7seconds. Final angiography reveals 10 % stenosis with KRAIG 3 flow. Conclusion 1. Severe coronary arteries characterized by the following: A 50% distal left main coronary narrowing B 90% diffuse proximalmid LAD stenosis with reciprocal flow distally reflecting a patent DANIEL graft C 90% proximal and mid stenosis of the posterior division of the [address] [address] CARDIAC CATH REPORT Name: ASHISH FARIA Room: [address] [place] M.R.#: [id number] Admission: 08/27/20 Attend Phys: Jose Eller, Discharge: Date of : 45 Report #: [id number] circumflex with KRAIG II flow to the distal posterior division with total occlusion of the first marginal branch D 90% proximal and mid right coronary diffuse stenosis with 100% distal occlusion 2. Graft study characterized by the following: A widely patent DANIEL graft to the LAD with 40% distal LAD narrowing B widely patent saphenous vein graft to the distal right coronary artery C widely patent saphenous vein graft to a prominent marginal branch of the circumflex with 90% circumflex stenosis just beyond the distal anastomotic site 3. Significant systemic systolic hypertension 4. Mild reduction in global LV function, estimated ejection fraction being 50% with mild mid anterior hypokinesis 5. Successful PCI with deployment of a drug-eluting stent at the site of 90% stenosis of the prominent marginal branch of the circumflex; this was performed via the saphenous vein graft to that marginal branch Recommendations Cardiac Risk Reduction Program Aggressive Medical Therapy Medications Administered Aspirin (any) Ticagrelor Diagnostic Cath Approved by: Leon Bryan MD Date/Time: 06/04/2020 10:25:12 <ELECTRONICALLY SIGNED> By: Leon Bryan MD, [facility] 06/04/20 1029 1029 1029Leon Bryan MD, FAC /INF
[2020-06-04 12:00] VITALS: BP 123/37
[2020-06-04 12:25] VITALS: BP 214/94
--- NOTE | 2020-06-04 13:30 | NUR ---
VS CHARTED, VPACED ON TELE, ROOM AIR, A&OX4, NO LONGER HYPERTENSIVE, NEURO CONSULT SIGNED OFF, HOURLY ROUNDING PERFORMED, POSSESSIONS AND CALL LIGHT WITHIN REACH, REC DISHCARGE ORDERS, REVIEWED WITH PATIENT AND SPOUSE, SCRIPTS AND CARE NOTES GIVEN, 2 SCRIPTS SENT ELECTRONICALLY TO PHARMACY, TELE MONITOR AND IV REMOVED WITHOUT COMPLICATION, PATIENT TAKEN IN WHEELCHAIR BY NURSING STAFF, LEFT WITH SPOUSE IN FAMILY CAR
[2020-06-05 05:06] LABS: GLYCOHEMOGLOBIN (HGB A1C) 5.9 % (4.8-5.6)
--- NOTE | 2020-06-05 09:51 | EKG ---
[place] [address] ELECTROCARDIOGRAM REPORT Name: ASHISH FARIA Room: [address] [place] M.R.#: [id number] Admission: 06/01/20 Attend Phys: Jose Thomas Discharge: 06/04/20 Date of : 45 Date of Service: 06/03/20 0434 Report #: [id number] THIS REPORT FOR: //name// [facility] Test Date: 2020-06-03 Test Time: 04:34:32 Pat Name: ASHISH FARIA Department: Room: [address] Gender: M Ct Tech: FAISAL : 1945 Requested By: Leon Bryan Order Number: [id number] Osito MD: Leon Bryan Measurements Intervals [place] Rate: 63 P: LA: QRS: -26 QRSD: 106 T: 228 QT: 433 QTc: 444 Interpretive Statements Afib/flut and V-paced complexes No further rhythm analysis attempted due to paced rhythm Probable anterior infarct, age indeterminate Compared to ECG 06/02/2020 15:25:22 Early repolarization no longer present Myocardial infarct finding still present Electronically Signed On 06-05-2020 9:51:02 CDT by Leon Bryan [email or web address] <ELECTRONICALLY SIGNED> By: Leon Bryan MD, [facility] 06/05/20 0951 0434 0434 Leon Bryan MD, [facility] /EPI
== END 2020-06-04 13:00 | disposition home or self-care (01) | DRG 247 ==
LOC: M.ERS 03:07 → M.TBA-ER 05:24 → M.2W 17:56
PROVIDERS: Internal Medicine; Nurse Practitioner; Personal Emergency Response Attendant; ADMIT Family Medicine; ATTEND Family Medicine
PROC: B211YZZ Fluoroscopy of Multiple Coronary Arteries using Other Contrast (ICD-10-PCS; principal; 2020-06-02)
PROC: B213YZZ Fluoroscopy of Multiple Coronary Artery Bypass Grafts using Other Contrast (ICD-10-PCS; principal; 2020-06-02)
PROC: 3E033PZ Introduction of Platelet Inhibitor into Peripheral Vein, Percutaneous Approach (ICD-10-PCS; principal; 2020-06-02)
PROC: 4A023N7 Measurement of Cardiac Sampling and Pressure, Left Heart, Percutaneous Approach (ICD-10-PCS; principal; 2020-06-02)
PROC: 027034Z Dilation of Coronary Artery, One Artery with Drug-eluting Intraluminal Device, Percutaneous Approach (ICD-10-PCS; principal; 2020-06-02)
PROC: B215YZZ Fluoroscopy of Left Heart using Other Contrast (ICD-10-PCS; 2020-06-02)
DX: I25.710 Atherosclerosis of autologous vein coronary artery bypass graft(s) with unstable angina pectoris (principal); I48.20 Chronic atrial fibrillation, unspecified; I12.9 Hypertensive chronic kidney disease with stage 1 through stage 4 chronic kidney disease, or unspecified chronic kidney disease; N18.9 Chronic kidney disease, unspecified; E78.5 Hyperlipidemia, unspecified; E11.22 Type 2 diabetes mellitus with diabetic chronic kidney disease; Z20.828 Contact with and (suspected) exposure to other viral communicable diseases; E11.42 Type 2 diabetes mellitus with diabetic polyneuropathy; Z95.0 Presence of cardiac pacemaker; Z85.820 Personal history of malignant melanoma of skin; Z95.1 Presence of aortocoronary bypass graft; Z85.038 Personal history of other malignant neoplasm of large intestine; Z90.49 Acquired absence of other specified parts of digestive tract; Z79.82 Long term (current) use of aspirin; Z79.01 Long term (current) use of anticoagulants; Z79.899 Other long term (current) drug therapy; Z88.0 Allergy status to penicillin; Z86.73 Personal history of transient ischemic attack (TIA), and cerebral infarction without residual deficits